=== PATIENT | male | born 1950 | race African-American/Black ===

== ENCOUNTER 2018-08-11 10:36 | Inpatient (IN) ==
[~2018-08-11 10:36] MED LIST: ACETAMINOPHEN 325 MG TABLET PO PRN; ALUMINUM/MAGNES/SIMETH MAX STR 30 ML UDCUP PO PRN; MAGNESIUM HYDROXIDE SUSP 30 ML UDCUP PO PRN; MAGNESIUM SULF RIDER 2 GM in PREMIX 1 EACH IV PRN; MAGNESIUM SULF RIDER 4 GM in PREMIX 1 EACH IV PRN; ONDANSETRON 4 MG/2 ML VIAL IV PRN; POTASSIUM CHLORIDE 20 MEQ TABLET PO PRN; ZALEPLON 5 MG CAPSULE PO PRN
[2018-08-11] MEDS ORDERED: MAGNESIUM SULF RIDER 2 GM in PREMIX 1 EACH IV PRN (10:42)
[2018-08-11] MEDS ORDERED: ASPIRIN 325 MG TABLET PO ONE (10:42)
[2018-08-11] MEDS: PANTOPRAZOLE 40 MG TABLET PO SCH (12:25)
[2018-08-11] MEDS: SODIUM CHLORIDE 0.9% 1,000 ML IV SCH ×2 (12:25→20:47)
[2018-08-11] MEDS: CHLORTHALIDONE 25 MG TABLET PO SCH (12:25)
[2018-08-11] MEDS: ACETYLCYSTEINE 600 MG CAPSULE PO SCH ×2 (12:25→21:04)
[2018-08-11] MEDS: ENOXAPARIN 40 MG/0.4 ML SYRINGE SUBCUT SCH (21:02)
[2018-08-12 04:45] LABS: Basophils # 0.1 10*3/uL (0.0-0.2); Basophils % 0.6 % (0.0-0.8); Eosinophils # 0.5 10*3/uL (0.0-0.87); Eosinophils % 4.8 % (0.00-10.9); Hematocrit 40.3 VOL% (42.0-52.0); Immature Granulocytes % 0.4 %; Immature Granulocytes Absolute 0.04 #; Lymphocytes % 20.3 % (21.2-54.2); Mean Corpuscular HGB Conc 32.3 GM/DL (32-36); Mean Corpuscular Volume 85.9 FL (87-102); Mean Platelet Volume 11.6 FL (9.6-12.0); Neutrophils % 63.9 % (38.7-73.9); Platelet Count 234 T/CUMM (130-400); Red Blood Count 4.69 MC/CUMM (3.8-5.5); Red Cell Distribution Width 15.3 % (9.3-17.3); White Blood Count 9.6 T/CUMM (4-12)
[2018-08-12 05:17] LABS: Bilirubin,Total 0.6 MG/DL (0.2-1.0); Calcium 8.7 MG/DL (8.5-10.1); Osmolality,Calculated 291.8 MOS/KG (273-304); Risk Ratio 3.68; Total Protein 6.9 G/DL (6.4-8.3); VLDL CHOLESTEROL 16.6 MG/DL
[2018-08-12] MEDS ORDERED: DIAZEPAM 5 MG TABLET PO ONE (06:30)
[2018-08-12] MEDS ORDERED: diphenhydrAMINE CAP 25 MG CAPSULE PO ONE (06:30)
[2018-08-12] MEDS ORDERED: LIDOCAINE 1% 20 ML VIAL ONE (07:26)
[2018-08-12] MEDS ORDERED: fentaNYL 100 MCG/2 ML VIAL ONE (07:26)
[2018-08-12] MEDS ORDERED: MIDAZOLAM 2 MG/2 ML VIAL ONE (07:26)
[2018-08-12] MEDS ORDERED: hydrALAZINE 20 MG/1 ML VIAL ONE (07:48)
[2018-08-12] MEDS ORDERED: HYDROmorphone 2 MG/1 ML VIAL ONE (08:08)
[2018-08-12] MEDS ORDERED: HEPARIN/NACL 0.9% 2 UNITS/ML 0 ML IV ONE (08:17)
[2018-08-12] MEDS ORDERED: ATENOLOL 100 MG TABLET PO SCH (09:00)
[2018-08-12] MEDS: SODIUM CHLORIDE 0.9% 1,000 ML IV SCH ×4 (09:10→20:42)
[2018-08-12] MEDS: POTASSIUM CHLORIDE RIDER 10 MEQ in PREMIX 1 EACH IV PRN ×2 (09:44→11:09)
[2018-08-12] MEDS: ASPIRIN EC 81 MG TABLET PO SCH (10:46)
[2018-08-12] MEDS: PANTOPRAZOLE 40 MG TABLET PO SCH (10:46)
[2018-08-12] MEDS: CHLORTHALIDONE 25 MG TABLET PO SCH (10:47)
[2018-08-12] MEDS: ROSUVASTATIN 20 MG TABLET PO SCH (10:48)
[2018-08-12] MEDS: ACETYLCYSTEINE 600 MG CAPSULE PO SCH ×2 (10:48→20:46)
[2018-08-12] MEDS: ATENOLOL 50 MG TABLET PO SCH (10:49)
[2018-08-12] MEDS: MORPHINE 4 MG/1 ML VIAL IV PRN ×2 (12:35→20:41)
[2018-08-12 13:10] LABS: Apearance,Urine CLEAR (Clear); Bilirubin,Urine Negative (Negative); Blood, Urine Negative (Negative); Glucose,Urine (UA) Negative (Negative); Ketones,Urine Negative (Negative); Nitrite,Urine Negative (Negative); Protein,Urine Negative; RBC,Urine 2 /HPF (0-4); Urine Color Yellow (Yellow); Urine Specific Gravity 1.033 (1.001-1.035); Urine Urobilinogen < 2.0 EU/DL (0.2-1.0)
[2018-08-12] MEDS ORDERED: hydrALAZINE 20 MG/1 ML VIAL IV PRN (15:15)
[2018-08-12] MEDS: ENOXAPARIN 40 MG/0.4 ML SYRINGE SUBCUT SCH (20:42)
[2018-08-13] MEDS: MORPHINE 4 MG/1 ML VIAL IV PRN (01:05)
[2018-08-13] MEDS: SODIUM CHLORIDE 0.9% 1,000 ML IV SCH (03:05)
[2018-08-13 04:23] LABS: Basophils # 0.1 10*3/uL (0.0-0.2); Basophils % 0.7 % (0.0-0.8); Eosinophils # 0.2 10*3/uL (0.0-0.87); Eosinophils % 1.8 % (0.00-10.9); Hematocrit 40.6 VOL% (42.0-52.0); Hemoglobin 13.9 GM/DL (14.0-18.0); Immature Granulocytes % 0.3 %; Immature Granulocytes Absolute 0.04 #; Lymphocytes % 8.1 % (21.2-54.2); Mean Corpuscular HGB Conc 34.2 GM/DL (32-36); Mean Corpuscular Volume 84.1 FL (87-102); Mean Platelet Volume 11.9 FL (9.6-12.0); Monocytes % 8.3 % (1.7-12.7); Neutrophils % 80.8 % (38.7-73.9); Platelet Count 237 T/CUMM (130-400); Red Blood Count 4.83 MC/CUMM (3.8-5.5); White Blood Count 12.3 T/CUMM (4-12)
[2018-08-13 04:39] LABS: Calcium 9.1 MG/DL (8.5-10.1); Osmolality,Calculated 283.3 MOS/KG (273-304)
[2018-08-13 08:10] VITALS: BP 129/83
[2018-08-13] MEDS: ATENOLOL 50 MG TABLET PO SCH (08:28)
[2018-08-13] MEDS: ROSUVASTATIN 20 MG TABLET PO SCH (08:28)
[2018-08-13] MEDS: PANTOPRAZOLE 40 MG TABLET PO SCH (08:28)
[2018-08-13] MEDS: ASPIRIN EC 81 MG TABLET PO SCH (08:28)
[2018-08-13] MEDS: ACETYLCYSTEINE 600 MG CAPSULE PO SCH (08:28)
[2018-08-13] MEDS ORDERED: POTASSIUM CHLORIDE 20 MEQ TABLET PO SCH (09:00)
[2018-08-13] MEDS ORDERED: amLODIPine 5 MG TABLET PO SCH (09:00)
== END 2018-08-13 10:29 | disposition home or self-care (01) | DRG 684 ==
LOC: N.TELEN
PROVIDERS: ADMIT Internal Medicine Cardiovascular Disease; ATTEND Internal Medicine Cardiovascular Disease